=== PATIENT | male | born 1990 | race Caucasian/White ===

== ENCOUNTER → 2016-11-03 | Outpatient (CLI) | payer MEDICAID, OTHER | LOC: M OUTALCOH 12:44 | PROVIDERS: ATTEND Psychiatry & Neurology Psychiatry | DX: F10.10 Alcohol abuse, uncomplicated (principal) ==

== ENCOUNTER → 2016-11-24 | Outpatient (RCR) | payer MEDICAID, OTHER | LOC: M OUTALCOH 11-18 15:52 | PROVIDERS: ATTEND Psychiatry & Neurology Psychiatry | DX: F10.10 Alcohol abuse, uncomplicated (principal); F17.200 Nicotine dependence, unspecified, uncomplicated ==

== ENCOUNTER 2016-12-23 10:00 | Outpatient (RCR) | payer MEDICAID | END 2016-12-25 | LOC: M OUTALCOH 10:00 | PROVIDERS: ATTEND Psychiatry & Neurology Psychiatry | DX: F10.20 Alcohol dependence, uncomplicated (principal); F17.200 Nicotine dependence, unspecified, uncomplicated ==

== ENCOUNTER → 2017-02-24 | Outpatient (RCR) | payer MEDICAID, SELFPAY | LOC: M OUTALCOH 01-26 10:37 | PROVIDERS: ATTEND Psychiatry & Neurology Psychiatry | DX: F10.20 Alcohol dependence, uncomplicated (principal); F17.200 Nicotine dependence, unspecified, uncomplicated ==

== ENCOUNTER 2017-04-15 12:34 | Emergency (ER) | payer MEDICAID, SELFPAY ==
[~2017-04-15] VITALS: Ht 170.2 cm; Wt 65.0 kg
[2017-04-15] MEDS ORDERED: IBUPROFEN 600 MG TAB PO ONE (13:30)
[2017-04-15] MEDS ORDERED: ACETAMINOPHEN 325 MG TAB PO ONE (13:30)
[2017-04-15] MEDS ORDERED: MAGICMW SSP (14:07)
[2017-04-15 14:16] VITALS: BP 131/69
== END 2017-04-15 14:20 | disposition home or self-care (01) ==
LOC: M ED 12:34
DX: J02.9 Acute pharyngitis, unspecified (principal); F17.210 Nicotine dependence, cigarettes, uncomplicated

== ENCOUNTER 2017-04-18 14:25 | Emergency (ER) | payer SELFPAY ==
[~2017-04-18] VITALS: Ht 170.2 cm; Wt 55.9 kg
[~2017-04-18 14:25] MED LIST: MAGICMW SSP
[2017-04-18] MEDS ORDERED: TYLE325T5 PO (14:32)
[2017-04-18] MEDS ORDERED: IBUP200C10 PO (14:32)
[2017-04-18] MEDS ORDERED: KEFL500C17 PO (15:53)
[2017-04-18 16:00] VITALS: BP 145/88
== END 2017-04-18 16:09 | disposition home or self-care (01) ==
LOC: M ED 14:25
DX: J02.9 Acute pharyngitis, unspecified (principal); L08.9 Local infection of the skin and subcutaneous tissue, unspecified; F17.210 Nicotine dependence, cigarettes, uncomplicated

== ENCOUNTER 2017-12-11 20:22 | Emergency (ER) | payer OTHER, SELFPAY ==
[2017-12-11] MEDS: BACITRACIN OINT 30GM TOP (20:45)
[2017-12-11] MEDS: PERCOCET 5MG/325MG TAB PO (20:59)
[2017-12-11] MEDS: ADACEL/BOOSTRIX VACCINE (DIPHTH/PERTUSS/ACELL/TETANUS)0.5ML SYR (90715) IM (21:34)
[2017-12-11] MEDS: MORPHINE 4 MG/ML 1ML VIAL/SYRINGE (J2270) IV (23:04)
== END 2017-12-11 23:11 | disposition short-term general hospital (02) ==
LOC: M ED 20:22
DX: T21.26XA Burn of second degree of male genital region, initial encounter (principal); T23.132A Burn of first degree of multiple left fingers (nail), not including thumb, initial encounter; X04.XXXA Exposure to ignition of highly flammable material, initial encounter; Y92.091 Bathroom in other non-institutional residence as the place of occurrence of the external cause; F17.200 Nicotine dependence, unspecified, uncomplicated
CPT/HCPCS: J2270

== ENCOUNTER → 2018-01-11 | Outpatient (CLI) | payer OTHER | LOC: M WUC 19:03 | DX: M25.571 Pain in right ankle and joints of right foot (principal) | CPT/HCPCS: 73630 ==

== ENCOUNTER → 2018-07-19 | Outpatient (REF) | payer OTHER ==
[~2018-07-19] MED LIST changes: +IBUP200C25 PO; +KEFL500C17 PO; +TYLE325T5 PO
[2018-07-19 17:30] LABS: BASO % 0.6 % (0.0-1.0); BLOOD UREA NITROGEN 18 MG/DL (7-18); CALCIUM LEVEL 9.4 MG/DL (8.5-10.1); CARBON DIOXIDE LEVEL 28 MEQ/L (21-32); CHLORIDE LEVEL 103 MEQ/L (98-107); CREATININE FOR GFR 0.84 MG/DL (0.70-1.30); EOS # 0.2 10^3/uL (0.0-0.50); EOS % 2.9 % (0.0-3.0); GLOMERULAR FILTRATION RATE > 60.0 (>60); GLUCOSE, FASTING 110 MG/DL (70-100); HEMATOCRIT 43.9 % (42.0-52.0); HEMOGLOBIN 15.2 g/dl (13.5-17.5); LYMPH # 2.4 10^3/uL (1.5-6.5); MEAN CORPUSCULAR HEMOGLOBIN 30.3 pg (27.0-33.0); MEAN CORPUSCULAR HGB CONC 34.6 g/dl (32.0-36.5); MEAN CORPUSCULAR VOLUME 87.6 fl (80.0-96.0); MONO # 0.6 10^3/uL (0.0-0.8); MONO % 8.2 % (0.0-5.0); NEUTROPHILS # 3.9 10^3/uL (1.8-7.7); PLATELET COUNT, AUTOMATED 293 10^3/uL (150-450); POTASSIUM SERUM 4.5 MEQ/L (3.5-5.1); RED BLOOD COUNT 5.01 10^6/uL (4.30-6.10); SODIUM LEVEL 137 MEQ/L (136-145); THYROID STIMULATING HORMONE 0.666 uIU/ML (0.358-3.740); WHITE BLOOD COUNT 7.2 10^3/uL (4.0-10.0)
[2018-07-19 18:08] LABS: HIV 1&2 SCREEN CENTAUR NEGATIVE (NEGATIVE)
== END ==
LOC: M LAB REF 16:16
PROVIDERS: ATTEND Family Medicine
DX: Z00.00 Encounter for general adult medical examination without abnormal findings (principal); F17.290 Nicotine dependence, other tobacco product, uncomplicated; B07.0 Plantar wart; K21.9 Gastro-esophageal reflux disease without esophagitis; F32.0 Major depressive disorder, single episode, mild

== ENCOUNTER 2018-10-07 09:59 | Day surgery (SDC) | payer OTHER ==
[~2018-10-07] VITALS: Ht 168.9 cm; Wt 61.1 kg
[~2018-10-07 09:59] MED LIST changes: +NS 1,000 ML IV ONE
[2018-10-07] MEDS ORDERED: LIDOCAINE 2% INJ 100 MG/5 ML SDV (FOR ANES.) As Ordered ONE (10:59)
[2018-10-07] MEDS ORDERED: PROPOFOL 200 MG/20 ML VIAL As Ordered ONE (10:59)
--- NOTE | 2018-10-07 11:20 | ROOR ---
Patient Name: Gianni Mckenzie Procedure Date: 10/07/2018 10:56 AM Date of : 1990 Age: 27 Room: [facility] Gender: Male Note Status: Finalized Procedure: Colonoscopy Indications: Rectal bleeding Providers: Joel Lanier Jr, MD Referring MD: Maria L Antonio DO Requesting Provider: Medicines: Propofol per Anesthesia Complications: No immediate complications. Procedure: Pre-Anesthesia Assessment: - Prior to the procedure, a History and Physical was performed, and patient medications and allergies were reviewed. The patient is competent. The risks and benefits of the procedure and the sedation options and risks were discussed with the patient. All questions were answered and informed consent was obtained. Patient identification and proposed procedure were verified by the physician and the nurse in the pre-procedure area and in the procedure room. Mental Status Examination: alert and oriented. Airway Examination: normal oropharyngeal airway and neck mobility. Respiratory Examination: clear to auscultation. CV Examination: normal. ASA Grade Assessment: II - A patient with mild systemic disease. After reviewing the risks and benefits, the patient was deemed in satisfactory condition to undergo the procedure. The anesthesia plan was to use moderate sedation / analgesia (conscious sedation). Immediately prior to administration of medications, the patient was re-assessed for adequacy to receive sedatives. The heart rate, respiratory rate, oxygen saturations, blood pressure, adequacy of pulmonary ventilation, and response to care were monitored throughout the procedure. The physical status of the patient was re-assessed after the procedure. The Colonoscope was introduced through the anus and advanced to the cecum, identified by appendiceal orifice and ileocecal valve. The colonoscopy was performed without difficulty. The patient tolerated the procedure well. The quality of the bowel preparation was adequate. Findings: The sigmoid colon, descending colon, transverse colon, ascending colon, cecum, appendiceal orifice and ileocecal valve appeared normal. Two polyps were found in the recto-sigmoid colon. The polyps were small in size. These polyps were removed with a hot snare. Resection and retrieval were complete. Diffuse severe inflammation characterized by congestion (edema), friability, granularity and mucus was found in the distal rectum. Biopsies were taken with a cold forceps for histology. Impression: - The sigmoid colon, descending colon, transverse colon, ascending colon, cecum, appendiceal orifice and ileocecal valve are normal. - Two small polyps at the recto-sigmoid colon, removed with a hot snare. Resected and retrieved. 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 Biopsied. Recommendation: - Discharge patient to home (ambulatory). - Repeat colonoscopy in 3 - 5 years for surveillance based on pathology results. Joel Lanier MD Joel Lanier Jr, MD 10/07/2018 11:20:34 AM Electronically signed by Joel Lanier Jr, MD Number of Addenda: 0 Note Initiated On: 10/07/2018 10:56 AM Estimated Blood Loss: Estimated blood loss: none.
[2018-10-07 11:52] VITALS: BP 120/56
== END 2018-10-07 11:53 | disposition home or self-care (01) ==
LOC: M OPP 09:59
PROVIDERS: ATTEND Surgery
DX: K63.5 Polyp of colon (principal); K51.211 Ulcerative (chronic) proctitis with rectal bleeding; K62.5 Hemorrhage of anus and rectum

== ENCOUNTER → 2019-03-22 | Outpatient (CLI) | payer OTHER ==
[~2019-03-22] MED LIST changes: -NS 1,000 ML IV ONE
[2019-03-22 10:24] LABS: BASO % 0.6 % (0.0-1.0); EOS # 0.4 10^3/uL (0.0-0.5); EOS % 5.5 % (0.0-3.0); HEMATOCRIT 44.9 % (42.0-52.0); HEMOGLOBIN 15.2 g/dl (13.5-17.5); LYMPH # 2.2 10^3/uL (1.5-5.0); MEAN CORPUSCULAR HEMOGLOBIN 30.4 pg (27.0-33.0); MEAN CORPUSCULAR HGB CONC 33.9 g/dl (32.0-36.5); MEAN CORPUSCULAR VOLUME 89.8 fl (80.0-96.0); MONO # 0.5 10^3/uL (0.0-0.8); MONO % 7.1 % (0.0-5.0); NEUTROPHILS # 3.3 10^3/uL (1.5-8.5); NEUTROPHILS % 52.6 % (36.0-66.0); PLATELET COUNT, AUTOMATED 270 10^3/uL (150-450); WHITE BLOOD COUNT 6.3 10^3/uL (4.0-10.0)
[2019-03-22 10:42] LABS: ERYTHROCYTE SEDIMENTATION RATE 21 mm/hr (0-15)
[2019-03-22 10:53] LABS: ALBUMIN 4.1 GM/DL (3.2-5.2); ALT/SGPT 41 U/L (12-78); BILIRUBIN,DIRECT 0.1 MG/DL (0.0-0.2); BILIRUBIN,TOTAL 0.4 MG/DL (0.2-1.0)
[2019-03-23 09:42] LABS: HEPATITIS B SURFACE ANTIBODY NEGATIVE (POSITIVE)
[2019-03-23 09:52] LABS: HEPATITIS B SURFACE ANTIGEN NEGATIVE (NEGATIVE)
[2019-03-23 10:20] LABS: HEPATITIS C VIRUS ABY INDEX 0.1 INDEX (<0.8)
== END ==
LOC: M LAB 09:22
PROVIDERS: ATTEND Internal Medicine Gastroenterology
DX: K62.5 Hemorrhage of anus and rectum (principal); K52.3 Indeterminate colitis

== ENCOUNTER → 2019-12-26 | Outpatient (CLI) | payer OTHER ==
[2019-12-26 13:17] LABS: BASO % 0.3 % (0.0-1.0); EOS # 0.3 10^3/uL (0.0-0.5); EOS % 4.8 % (0.0-3.0); HEMATOCRIT 43.5 % (42.0-52.0); HEMOGLOBIN 14.8 g/dl (13.5-17.5); LYMPH # 2.3 10^3/uL (1.5-5.0); LYMPH % 38.1 % (24.0-44.0); MEAN CORPUSCULAR HEMOGLOBIN 32.1 pg (27.0-33.0); MEAN CORPUSCULAR VOLUME 94.4 fl (80.0-96.0); MONO # 0.4 10^3/uL (0.0-0.8); MONO % 6.5 % (0.0-5.0); NEUTROPHILS % 49.8 % (36.0-66.0); PLATELET COUNT, AUTOMATED 289 10^3/uL (150-450); RED BLOOD COUNT 4.61 10^6/uL (4.30-6.10)
[2019-12-26 13:38] LABS: ALBUMIN 4.1 GM/DL (3.2-5.2); ALT/SGPT 28 U/L (12-78); BILIRUBIN,DIRECT 0.1 MG/DL (0.0-0.2); BILIRUBIN,TOTAL 0.3 MG/DL (0.2-1.0); BLOOD UREA NITROGEN 18 MG/DL (7-18); C REACTIVE PROTEIN QUANTITATIV < 0.30 MG/DL (0.00-0.30); CREATININE FOR GFR 0.97 MG/DL (0.70-1.30); GLOMERULAR FILTRATION RATE > 60.0 (>60); TOTAL PROTEIN 8.2 GM/DL (6.4-8.2)
[2019-12-26 13:40] LABS: ERYTHROCYTE SEDIMENTATION RATE 14 mm/hr (0-15)
== END ==
LOC: M LAB 10:57
PROVIDERS: ATTEND Internal Medicine Gastroenterology
DX: K62.5 Hemorrhage of anus and rectum (principal); K52.3 Indeterminate colitis

== ENCOUNTER → 2020-03-24 | Outpatient (REF) | payer OTHER | LOC: M LAB REF 18:13 | PROVIDERS: ATTEND Physician Assistant | DX: J02.9 Acute pharyngitis, unspecified (principal) ==

== ENCOUNTER → 2020-08-29 | Outpatient (CLI) | payer MEDICAID | LOC: M OUTALCOH 08:06 | PROVIDERS: ATTEND Psychiatry & Neurology Psychiatry | DX: Z03.89 Encounter for observation for other suspected diseases and conditions ruled out (principal) ==

== ENCOUNTER → 2024-04-07 | Outpatient (REF) | payer MEDICAID | LOC: EEVIPCON 16:24 → M LAB REF 16:24 | PROVIDERS: ATTEND Nurse Practitioner Family | DX: L03.115 Cellulitis of right lower limb (principal) ==